=== PATIENT | male | born 1970 | race Caucasian/White ===

== ENCOUNTER 2022-10-08 15:01 | Emergency (ER) | payer BC, SELFPAY ==
[2022-10-08 15:33] VITALS: BP 132/93; PULSE 96; RESP 18; TEMP 36.4; O2SAT 98
--- NOTE | 2022-10-08 16:06 | ED.EYEPROB ---
HPI - Eye Problem General Chief complaint: Eye Problems Stated complaint: lt eye irritatiion Source: patient Mode of arrival: ambulatory History of Present Illness HPI Narrative: This was a 52-year-old male that presented to urgent care with complaints discomfort to his left eye and ear. According to patient he woke up this morning with gross on his left eye he also noted that he had itching with some blurred vision to his left. He noted that a couple days ago he experience pain to his left ear took some ibuprofen for his pain. The patient denies SOB, CP, palpitation, extremity numbness, lightheadedness, dizziness, constipation, diarrhea, chills, or fever. Related Data Home Medications Medication Instructions Recorded Confirmed hydrochlorothiazide 25 mg tablet 25 mg DAILY 10/08/22 10/08/22 levothyroxine 25 mcg tablet 25 mcg DAILY 10/08/22 10/08/22 Allergies Allergy/AdvReac Type Severity Reaction Status Date / Time No Known Allergies Allergy Verified 10/08/22 15:48 Review of Systems Review of Systems: A 14 organ system Review of Systems was performed and pertinent positives included in the HPI, otherwise remaining ROS is negative. Exam Narrative: GENERAL: This is a well-nourished, well-developed patient, in no apparent distress. HEAD: normocephalic, atraumatic. EYES: Right eye redness. EARS: External ears normal, auditory canals clear and without drainage, TMs normal without perforation. Hearing grossly intact. NOSE: External nose normal with no obvious nasal discharge, nares without redness, no rhinorrhea. THROAT: Mucous membranes moist, posterior pharynx clear. NECK: Neck supple, non-tender without lymphadenopathy, masses or thyromegaly. CARDIOVASCULAR: Regular rate and rhythm without murmurs, gallops, or rubs. RESPIRATORY: Clear to auscultation. Breath sounds equal bilaterally. No wheezes, rales, or rhonchi. GASTROINTESTINAL: Abdomen soft, non-tender, nondistended. Bowel sounds are active. No hepato-splenomegaly, or palpable masses. No guarding. SKIN: warm, intact with no suspicious lesions or rash, good texture and turgor. NEURO: awake, alert, and oriented to person, place and time. There were no obvious focal neurologic abnormalities. EXTREMITIES: Normal range of motion. No edema. No calf tenderness. Course Course Level of Care: Express Care Visit Vital Signs Vital signs: Vital Signs Temperature 97.5 F L 10/08/22 15:33 Pulse Rate 96 10/08/22 15:33 Respiratory Rate 18 10/08/22 15:33 Blood Pressure 132/93 H 10/08/22 15:33 Pulse Oximetry 98 10/08/22 15:33 Oxygen Delivery Room Air 10/08/22 15:33 Temperature 97.5 F L 10/08/22 15:33 Pulse Rate 96 10/08/22 15:33 Respiratory Rate 18 10/08/22 15:33 Blood Pressure 132/93 H 10/08/22 15:33 Pulse Oximetry 98 10/08/22 15:33 Oxygen Delivery Room Air 10/08/22 15:33 MDM - Eye Problem Differential Diagnosis Differential diagnosis: Likely corneal abrasion, conjunctivitis and other (Otitis media) Discharge Plan Discharge Clinical Impression: Conjunctivitis, Otitis media Patient Disposition: Home, Self-Care Condition: Stable Instructions: Antibiotic Form, Ear Infection (ED), Conjunctivitis (ED) Additional Instructions: Follow up with your provider in 1-2 weeks Take all medications as prescribed How are ear infections treated? - Doctors can treat ear infections with antibiotics. These medicines kill the bacteria that cause some ear infections. But doctors do not always prescribe these medicines right away. That?s because many ear infections are caused by viruses - not bacteria - and antibiotics do not kill viruses. Plus, many children get over ear infections without antibiotics. Doctors usually prescribe antibiotics to treat ear infections in infants younger than 2 years old. For children older than 2, doctors sometimes hold off on antibiotics. Your child?s doctor might suggest watching your child?s symptoms for
== END 2022-10-08 16:05 | disposition home or self-care (01) ==
PROVIDERS: Emergency Provider Nurse Practitioner
DX: H10.9 Unspecified conjunctivitis (principal); H66.90 Otitis media, unspecified, unspecified ear
CPT/HCPCS: 99213; G0463